=== PATIENT | female | born 2000 | race Caucasian/White ===

== ENCOUNTER 2018-07-16 12:07 | Emergency (ER) | payer OTHER ==
--- NOTE | 2018-07-16 12:50 | PDOC ---
History of Present Illness - General Chief Complaint: Cold Symptoms Stated Complaint: COLD SYMPTOMS COUGH NASAL CONGESTION History Source: Patient Exam Limitations: No Limitations - History of Present Illness Initial Comments: 07/16/18 12:46 17 yo f with h/o anxiety, here with c/o sob and chest pain. pt states she has been having worsenig sob and episodic chest pain over past few months. she is away at college. was seen at emergency room near [facility] 4 days ago where she was evaluated with trop ekg labs. and cxr. all were normal so dc home. today she is home visiting her mother, feels sxs are move severe. no leg swelling. no calf pain . no h/o pe or dvt. did recently start new control few months ago. describes episodes of palpitations, sob and chest pain last any where from few minutes to hour. unsure of any triggers. does feel sob with exercise. as of last night developed cough, congestion and runny nose. no n/v Past History - Past Medical History Allergies/Adverse Reactions: Allergies Allergy/AdvReac Type Severity Reaction Status Date / Time clindamycin Allergy Mild Hives Verified 07/16/18 12:10 Home Medications: Ambulatory Orders Patient Specific Medications [Pt Own Med Drawer -] 07/16/18 COPD: No Other medical history: MILD ANXIETY - Suicide/Smoking/Psychosocial Hx Smoking History: Never smoked Have you smoked in the past 12 months: No Information on smoking cessation initiated: No Hx Alcohol Use: Yes (SOCIAL) Drug/Substance Use Hx: No Substance Use Type: Alcohol Review of Systems - Review of Systems Constitutional: No: Chills, Fever Respiratory: Yes: Cough, Shortness of Breath. No: Orthopnea Cardiac (ROS): Yes: Chest Pain. No: Edema, Irregular Heart Rate : No: Testicular Pain Musculoskeletal: No: Back Pain, Gout Integumentary: No: Bruising, Change in Color Neurological: No: Headache, Numbness All Other Systems: Reviewed and Negative *Physical Exam - Vital Signs Last Vital Signs Temp Pulse Resp BP Pulse Ox 98.5 F 94 H 16 141/93 98 07/16/18 12:09 07/16/18 12:09 07/16/18 12:09 07/16/18 12:09 07/16/18 12:09 - Physical Exam Comments: 07/16/18 12:51 awake alert lungs clear bilaterally heart rrr no mrg. abd soft nt nd. ext wwp no edema. no calf tenderness. nuero awake alert calm cooperaitve. moves all ext. skin warm and dry no rash. ED Treatment Course - LABORATORY CBC & Chemistry Diagram: 07/16/18 13:07 07/16/18 13:07 Medical Decision Making - Medical Decision Making 07/16/18 12:52 pt with maxley anxiety. differential includes anemia electrolyte abnormality, hyper or hypothyroid. due to recent ocp changs, concerns for pe. will obtain cta, labs ua ucg. and tsh. *DC/Admit/Observation/Transfer Diagnosis at time of Disposition: Palpitations - Discharge Dispostion Disposition: HOME Condition at time of disposition: Improved - Referrals Referrals: Sanchez Siegel MD [Staff Physician] - - Patient Instructions Printed Discharge Instructions: DI for Palpitations, Generalized Anxiety Disorder Additional Instructions: your test are normal today including blood work , blood counts, liver test, kidney test and ekg. your ct was negative for a blood clot in your lungs, and shows all normal findings. you should follow up with a motor scooter mechanic for continued symtpoms of pain or shortness of breath. avoid heavy caffeine as this can increase palpitations and anxiety. return for any difficulty breathing or any concerns. take ibuprofen 400 mg every 8 hrs asneedd for pain. - Post Discharge Activity
[2018-07-16 12:58] VITALS: BP 141/93; PULSE 94; TEMP 98.5; BMI 24.0
[2018-07-16 13:34] LABS: BASO % 0.6 % (0-2.0); EOS % 1.4 % (0-4.5); HEMATOCRIT 40.2 % (32.4-45.2); HEMOGLOBIN 13.6 GM/dl (10.7-15.3); LYMPH % 16.7 % (8-40); MCH 30.8 pg (25.7-33.7); MCHC 33.8 g/dl (32.0-36.0); MEAN CELL VOLUME 90.9 fl (80-96); MEAN PLT VOLUME 8.1 fl (7.5-11.1); MONO % 5.1 % (3.8-10.2); NEUT % 76.2 % (42.8-82.8); PLATELET COUNT 262 K/MM3 (134-434); RBC 4.42 M/mm3 (3.60-5.2); RDW 12.1 % (11.6-15.6); WHITE BLOOD COUNT 8.4 K/mm3 (4.0-10.8)
[2018-07-16 13:42] LABS: ALBUMIN 3.8 g/dl (3.5-5.0); ALK PHOS 48 U/L (32-92); ANION GAP 8 MMOL/L (8-16); BILIRUBIN,TOTAL 0.6 mg/dl (0.2-1.0); BLOOD UREA NITROGEN 17 mg/dl (7-18); CALCIUM 9.2 mg/dl (8.4-10.2); CHLORIDE 102 mmol/L (98-107); CO2 25 mmol/L (22-28); CREATININE 0.8 mg/dl (0.6-1.3); GLUCOSE,RANDOM 90 mg/dl (74-106); POTASSIUM 4.4 mmol/L (3.5-5.1); SGOT/AST 19 U/L (10-42); SGPT/ALT 16 U/L (10-40); SODIUM 135 mmol/L (136-145); TOT PROT 6.9 g/dl (6.4-8.3)
[2018-07-16 14:18] LABS: INR 1.11 (0.82-1.09); PROTHROMBIN TIME (PATIENT) 12.4 SEC (10.2-13.0)
== END 2018-07-16 16:08 | disposition home or self-care (01) ==
LOC: FER 12:07
DX: R00.2 Palpitations (principal)
CPT/HCPCS: 36415; 71275-TC; 80053; 84443; 84703; 85025; 85610; 99283-25